=== PATIENT | male | born 1980 | race African-American/Black ===

== ENCOUNTER 2020-02-12 14:45 | Emergency (ER) | payer BC, SELFPAY ==
[2020-02-12] MEDS ORDERED: ONDANSETRON 4 MG/2 ML VIAL ONE (15:33)
[2020-02-12] MEDS ORDERED: NA CHLORIDE 0.9% 1,000 ML ONE (15:33)
[2020-02-12 15:56] LABS: Absolute Lymphocytes (CBC) 1.2 K/uL (0.7-4.9); Basophils % 0.4 % (0-1.3); Hematocrit 44.2 % (39.6-49.0); Lymphocytes % 17.6 % (15.3-44.8); MPV 8.9 fL (7.6-11.3); RBC Red Blood Cell Count 4.75 M/uL (4.33-5.43)
[2020-02-12 16:07] LABS: Albumin 4.1 g/dL (3.4-5.0); Bilirubin Direct 0.1 mg/dL (0-0.2); Bilirubin Total 0.5 mg/dL (0.2-1.0); Potassium 4.1 mmol/L (3.5-5.1); Protein, Total 7.6 g/dL (6.4-8.2)
[2020-02-12 16:34] LABS: Urine Blood NEGATIVE (NEG); Urine Glucose NEGATIVE (NEG); Urine Protein NEGATIVE (NEG); Urine pH 7.5 (5.0-7.0)
--- NOTE | 2020-02-12 17:17 | EDPHYS ---
Physician Documentation [facility] Name: Suraj Ruvalcaba Age: 39 yrs Sex: Male : 1980 Arrival Date: 02/12/2020 Time: 14:48 Bed 7 Private MD: ED Physician Nicolas Sepulveda HPI: 02/11 15:06 This 39 yrs old Black Male presents to ER via Ambulatory with complaints of Headache. jmm 15:06 The patient presents to the emergency department with nausea, vomiting, diarrhea. jmm Onset: The symptoms/episode began/occurred gradually, 3 day(s) ago. Possible causes: unknown. The symptoms are aggravated by nothing. The symptoms are alleviated by nothing. Associated signs and symptoms: Pertinent positives: diarrhea, fever, vomiting, Pertinent negatives: abdominal pain. This is a 39 year old male with no chronic medical conditions that presents to the ED with complaints of 2 days of diarrhea with multiple episodes of vomiting beginning last night. Denies abdominal pain, denies cough, denies sore throat. . Historical: - Allergies: 15:04 No Known Allergies; iw - Home Meds: 15:04 None [Active]; iw - PMHx: 15:04 None; iw - PSHx: 15:04 None; iw - Immunization history:: Adult Immunizations not up to date. - Social history:: Smoking status: Patient denies any tobacco usage or history of. ROS: 15:06 Constitutional: Positive for fever. jmm 15:06 Abdomen/GI: Positive for nausea and vomiting, diarrhea. 15:06 All other systems are negative. Exam: 15:06 Constitutional: This is a well developed, well nourished patient who is awake, alert, jmm and in no acute distress. Head/Face: atraumatic. Eyes: EOMI, no conjunctival erythema appreciated ENT: Moist Mucus Membranes Neck: Trachea midline, Supple Chest/axilla: Normal chest wall appearance and motion. Cardiovascular: Regular rate and rhythm. No edema appreciated Respiratory: Normal respirations, no respiratory distress appreciated 15:06 Back: Normal ROM Skin: General appearance color normal MS/ Extremity: Moves all extremities, no obvious deformities appreciated, no edema noted to the lower extremities Neuro: Awake and alert, normal gait Psych: Behavior is normal, Mood is normal, Patient is cooperative and pleasant 15:06 Abdomen/GI: Inspection: abdomen appears normal, Bowel sounds: normal, Palpation: abdomen is soft and non-tender, in all quadrants. Vital Signs: 15:02 BP 119 / 82; Pulse 62; Resp 16; Temp 98.0; Pulse Ox 100% on R/A; Weight 106.59 kg; iw Height 6 ft. 1 in. (185.42 cm); Pain 0/10; 15:55 BP 153 / 73; Pulse 65; Resp 17; Pulse Ox 100% on R/A; hb 15:02 Body Mass Index 31.00 (106.59 kg, 185.42 cm) iw MDM: 15:06 Patient medically screened. [facility] 17:15 Data reviewed: vital signs, nurses notes. Counseling: I had a detailed discussion with [facility] the patient and/or guardian regarding: the historical points, exam findings, and any diagnostic results supporting the discharge/admit diagnosis, lab results, the need for outpatient follow up, to return to the emergency department if symptoms worsen or persist or if there are any questions or concerns that arise at home. ED course: Abdomen non tender to palpation on reevaluation. Most likely viral gastroenteritis. Patient is able to tolerate PO. Patient is otherwise given strict return precautions. Patient understood and agrees with the plan of care. . 02/11 15:14 Order name: Basic Metabolic Panel; Complete Time: 16:11 [facility] 02/11 15:14 Order name: CBC with Diff; Complete Time: 16:11 [facility] 02/11 15:14 Order name: Hepatic Function; Complete Time: 16:11 [facility] 02/11 15:14 Order name: Lipase; Complete Time: 16:11 [facility] 02/11 15:14 Order name: COVID-19 [facility] 02/11 16:28 Order name: Urine Dipstick--Ancillary (enter results); Complete Time: 16:41 02/11 15:14 Order name: IV Saline Lock; Complete Time: 15:47 [facility] 02/11 15:14 Order name: Labs collected and sent; Complete Time: 15:47 [facility] 02/11 15:14 Order name: Urine Dipstick-Ancillary (obtain specimen); Complete Time: 16:41 [facility] Administered Medications: 15:38 Drug: NS 0.9% 1000 ml Route: IV; Rate: 1 bolus; Site: right antecubital; ec1 15:38 Drug: Zofran (Ondansetron) 4 mg Route: IVP; Site: right antecubital; ec1 Disposition: 18:35 Co-signature as Attending Physician, Nicolas Sepulveda MD. [email or web address] Disposition: 02/12/20 17:16 Discharged to Home. Impression: Vomiting, Diarrhea, unspecified. - Condition is Stable. - Discharge Instructions: Food Choices to Help Relieve Diarrhea, Adult, Nausea and Vomiting, Adult. - Prescriptions for Zofran ODT 4 mg Oral tablet,disintegrating - place 1 tablet by TRANSLINGUAL route every 4-6 hours; 20 tablet. - Medication Reconciliation Form, Thank You Letter, Antibiotic Education, Prescription Opioid Use, Work release form form. - Follow up: Private Physician; When: 2 - 3 days; Reason: Recheck today's complaints, Continuance of care, Re-evaluation by your physician. Signatures: Dispatcher [employer] EDMS Dave Rubio PA PA jmm Williams, Irene, RN RN Pat Pham RN RN Nicolas Sepulveda MD MD ma2 Nuria Jaimes RN RN ec1 Corrections: (The following items were deleted from the chart) 17:28 17:16 02/12/2020 17:16 Discharged to Home. Impression: Vomiting; Diarrhea, unspecified. hb Condition is Stable. Forms are Medication Reconciliation Form, Thank You Letter, Antibiotic Education, Prescription Opioid Use. Follow up: Private Physician; When: 2 - 3 days; Reason: Recheck today's complaints, Continuance of care, Re-evaluation by your physician. douglas
--- NOTE | 2020-02-12 17:17 | ER ---
Nurse's Notes [facility] Name: Suraj Ruvalcaba Age: 39 yrs Sex: Male : 1980 Arrival Date: 02/12/2020 Time: 14:48 Bed 7 Private MD: Diagnosis: Vomiting;Diarrhea, unspecified Presentation: 02/11 15:02 Chief complaint: Patient states: last couple days has been running fever , vomited iw today and last night and is having some diarrhea. Coronavirus screen: congestion, diarrhea, fever, nausea, vomiting. Ebola Screen: Patient negative for fever greater than or equal to 101.5 degrees Fahrenheit, and additional compatible Ebola Virus Disease symptoms Patient denies exposure to infectious person. Patient denies travel to an Ebola-affected area in the 21 days before illness onset. No symptoms or risks identified at this time. Initial Sepsis Screen: Does the patient meet any 2 criteria? No. Patient's initial sepsis screen is negative. Does the patient have a suspected source of infection? No. Patient's initial sepsis screen is negative. Risk Assessment: Do you want to hurt yourself or someone else? Patient reports no desire to harm self or others. Onset of symptoms was February 10, 2020. 15:02 Method Of Arrival: Ambulatory iw 15:02 Acuity: FELIX 3 iw Triage Assessment: 15:53 Headache History: The patient has had previous headaches and this one is similar to ll1 previous episodes. General: Appears ill, Behavior is calm, cooperative, appropriate for age. Pain: Pain currently is 8 out of 10 on a pain scale. Quality of pain is described as aching, Pain began 2-3 days ago. Also complains of nausea. Historical: - Allergies: 15:04 No Known Allergies; iw - Home Meds: 15:04 None [Active]; iw - PMHx: 15:04 None; iw - PSHx: 15:04 None; iw - Immunization history:: Adult Immunizations not up to date. - Social history:: Smoking status: Patient denies any tobacco usage or history of. Screenin:52 Abuse screen: Denies threats or abuse. Nutritional screening: No deficits noted. ll1 Tuberculosis screening: No symptoms or risk factors identified. Fall Risk IV access (20 points). Total Denny Fall Scale indicates No Risk (0-24 pts). Assessment: 15:30 General: Appears uncomfortable, Behavior is calm, cooperative, appropriate for age. ll1 General: + fever. Pain: Complains of pain in head Quality of pain is described as aching. 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 Full function Gait is steady, Speech is normal, Facial symmetry appears normal, Reports headache. Cardiovascular: No deficits noted. Respiratory: No deficits noted. GI: Abdomen is flat, Bowel sounds present X 4 quads. Abd is soft and non tender X 4 quads. Reports diarrhea, nausea, vomiting. Vital Signs: 15:02 BP 119 / 82; Pulse 62; Resp 16; Temp 98.0; Pulse Ox 100% on R/A; Weight 106.59 kg; iw Height 6 ft. 1 in. (185.42 cm); Pain 0/10; 15:55 BP 153 / 73; Pulse 65; Resp 17; Pulse Ox 100% on R/A; hb 15:02 Body Mass Index 31.00 (106.59 kg, 185.42 cm) iw ED Course: 14:48 Patient arrived in ED. mr 15:04 Triage completed. iw 15:04 Arm band placed on. iw 15:06 Nicolas Sepulveda MD is Attending Physician. il2 15:06 Dave Rubio PA is PHCP. [facility] 15:08 Iván Devries, ROBIN is Primary Nurse. ll1 15:38 Inserted saline lock: 20 gauge in right antecubital area, using aseptic technique. ec1 Blood collected. 15:49 Iván Devries, ROBIN is Primary Nurse. ll1 15:52 Patient has correct armband on for positive identification. Bed in low position. Call ll1 light in reach. Side rails up X 1. Pulse ox on. NIBP on. Administered Medications: 15:38 Drug: NS 0.9% 1000 ml Route: IV; Rate: 1 bolus; Site: right antecubital; ec1 15:38 Drug: Zofran (Ondansetron) 4 mg Route: IVP; Site: right antecubital; ec1 Outcome: 17:16 Discharge ordered by . [facility] 17:28 Patient left the ED. hb Addendum: 02/15/2020 12:26 Addendum: COVID-19 Result: Negative result given to RN to notify pt. Notified pt of s s negative COVID 19 swab results. Pt advised that even with a negative test result they should remain in isolation until symptom free for 3 days without medication. Pt also advised to return to the ED for worsening symptoms. Signatures: Dave Rubio PA PA douglas Wei, Angy mr Suzanne Kong RN RN iw Jacque Rodgers RN RN Pat Pham RN RN Nicolas Sepulveda MD MD ma2 Iván Devries RN RN ll1 Nuria Jaimes RN RN ec1 Corrections: (The following items were deleted from the chart) 02/11 15:04 15:02 Pulse 62bpm; Resp 16bpm; Pulse Ox 100% RA; Temp 98.0F; 106.59 kg; Height 6 ft. 1 iw in.; BMI: 31.0; Pain 0/10; iw
[2020-02-12 18:51] VITALS: TEMP 98; O2SAT 100
[2020-02-12 18:52] VITALS: BP 153/73
== END 2020-02-12 17:28 | disposition home or self-care (01) ==
LOC: ER 14:45
DX: R19.7 Diarrhea, unspecified (principal); Z20.828 Contact with and (suspected) exposure to other viral communicable diseases
CPT/HCPCS: 36415; 80048; 80076; 81003; 83690; 85025; 96374; 99284; J2405; J7030; U0002

== ENCOUNTER 2020-10-28 22:37 | Emergency (ER) | payer BC ==
--- NOTE | 2020-10-29 02:30 | EDPHYS ---
Physician Documentation [facility] Name: Suraj Ruvalcaba Age: 39 yrs Sex: Male : 1980 Arrival Date: 10/28/2020 Time: 22:44 Bed Waiting Private MD: ED Physician Lionel Norton HPI: 10/28 23:45 This 39 yrs old Black Male presents to ER via Ambulatory with complaints of COVID cp SYMPTOMS, LOSS OF SMELL. 23:45 The patient presents with sore throat. The patient describes throat pain as scratchy. cp Onset: The symptoms/episode began/occurred 2 day(s) ago. Associated signs and symptoms: Pertinent positives: cough, fever, body aches. 23:45 Patient also c/o loss of smell. cp 23:45 Severity of symptoms: in the emergency department the symptoms are unchanged, despite cp home interventions. Historical: - Allergies: 23:34 No Known Allergies; em - PMHx: 23:34 None; em - PSHx: 23:34 None; em - Immunization history:: Adult Immunizations up to date. - Social history:: Smoking status: Patient denies any tobacco usage or history of. ROS: 23:50 Constitutional: Positive for body aches, Negative for fever, poor PO intake. cp 23:50 Eyes: Negative for injury, pain, redness, and discharge. cp 23:50 ENT: Positive for sore throat, loss of smell, Negative for drainage from ear(s), ear pain, difficulty swallowing, difficulty handling secretions. 23:50 Respiratory: Negative for cough, shortness of breath, wheezing. 23:50 Abdomen/GI: Negative for abdominal pain, nausea, vomiting, and diarrhea. 23:50 Skin: Negative for rash. 23:50 Neuro: Negative for altered mental status, headache, weakness. 23:50 All other systems are negative. Exam: 23:55 Constitutional: The patient appears in no acute distress, alert, awake, non-toxic, well cp developed, well nourished. 23:55 Head/Face: Normocephalic, atraumatic. cp 23:55 Eyes: Periorbital structures: appear normal, Conjunctiva: normal, no exudate, no injection, Sclera: no appreciated abnormality, Lids and lashes: appear normal, bilaterally. 23:55 ENT: External ear(s): are unremarkable, Ear canal(s): are normal, clear, TM's: bulging, is not appreciated, bilaterally, dullness, bilaterally, erythema, is not appreciated, bilaterally, Nose: is normal, Mouth: Lips: moist, Oral mucosa: pink and intact, moist, Posterior pharynx: Airway: no evidence of obstruction, patent, Tonsils: no enlargement, no erythema, no exudate, swelling, is not appreciated, erythema, is not appreciated, exudate, is not appreciated. 23:55 Neck: ROM/movement: is normal, is supple, no meningismus, no nuchal rigidity, Lymph nodes: no appreciated lymphadenopathy. 23:55 Chest/axilla: Inspection: normal, Palpation: is normal, no crepitus, no tenderness. 23:55 Cardiovascular: Rate: normal, Rhythm: regular. 23:55 Respiratory: the patient does not display signs of respiratory distress, Respirations: normal, no use of accessory muscles, no retractions, labored breathing, is not present, Breath sounds: are clear throughout, no decreased breath sounds, no stridor, no wheezing. 23:55 Abdomen/GI: Exam negative for discomfort, distension, guarding, Inspection: abdomen appears normal. Vital Signs: 23:33 BP 132 / 76; Pulse 63; Resp 18; Temp 97.8; Pulse Ox 100% on R/A; Weight 108.86 kg; em Height 6 ft. 1 in. (185.42 cm); 23:33 Body Mass Index 31.66 (108.86 kg, 185.42 cm) em MDM: 10/29 02:29 Patient medically screened. 02:29 Data reviewed: vital signs, nurses notes, lab test result(s), and as a result, I will cp discharge patient. 02:29 Differential diagnosis: group A strep tonsillitis, influenza, peritonsillar abscess cp pharyngitis, retropharyngeal abcess tonsillitis, upper respiratory infection, uvulitis, viral syndrome. Counseling: I had a detailed discussion with the patient and/or guardian regarding: the historical points, exam findings, and any diagnostic results supporting the discharge/admit diagnosis, lab results, to return to the emergency department if symptoms worsen or persist or if there are any questions or concerns that arise at home. 10/28 23:38 Order name: Strep; Complete Time: 01:17 em 10/28 23:38 Order name: Flu; Complete Time: 01:17 em 10/29 00:44 Order name: Throat Culture [facility] 10/29 01:06 Order name: SARS-COV-2 RT PCR; Complete Time: : EDMN Administered Medications: No medications were administered Disposition: 05:08 Co-signature as Attending Physician, Lionel Norton MD. [email or web address] Disposition Summary: 10/29/20 02:29 Discharge Ordered Location: Home cp Problem: new cp Symptoms: are unchanged cp Condition: Stable cp Diagnosis - SARS-associated coronavirus as the cause of diseases classified elsewhere cp Followup: cp - With: Private Physician - When: 5 - 6 days - Reason: Worsening of condition Discharge Instructions: - Discharge Summary Sheet cp - Form - Excuse from Work, School, or Physical Activity cp - COVID-19 cp - Things to Know about the COVID-19 Pandemic - [facility] cp - 10 Things You Can Do to Manage Your COVID-19 Symptoms at Home - [facility] cp - Viral Illness, Adult cp - COVID-19: Quarantine vs. Isolation - [facility] cp - Prevent the Spread of COVID-19 if You Are Sick - [facility] cp Forms: - Medication Reconciliation Form cp - Thank You Letter cp - Antibiotic Education cp - Prescription Opioid Use cp Signatures: Dispatcher [employer] Hernan Lieberman, RN RN Stephan Sorenson PA PA cp Lionel Norton MD MD [email or web address] Corrections: (The following items were deleted from the chart) 10/28 23:53 23:39 CORONAVIRUS+.BRZ ordered. [facility] 10/29 23:42 10/28 23:50 ENT: Positive for sore throat, Negative for drainage from ear(s), ear pain, cp difficulty swallowing, difficulty handling secretions, cp
--- NOTE | 2020-10-29 02:30 | ER ---
Nurse's Notes [facility] Name: Suraj Ruvalcaba Age: 39 yrs Sex: Male : 1980 Arrival Date: 10/28/2020 Time: 22:44 Bed Waiting Private MD: Diagnosis: SARS-associated coronavirus as the cause of diseases classified elsewhere Presentation: 10/28 23:33 Chief complaint: Patient states: loss of smell, body aches, sore throat, also fever em that stated 2 days ago. Coronavirus screen: Client denies travel out of the [place] in the last 14 days. Ebola Screen: Patient negative for fever greater than or equal to 101.5 degrees Fahrenheit, and additional compatible Ebola Virus Disease symptoms Patient denies exposure to infectious person. Patient denies travel to an Ebola-affected area in the 21 days before illness onset. No symptoms or risks identified at this time. Initial Sepsis Screen: Does the patient meet any 2 criteria? No. Patient's initial sepsis screen is negative. Does the patient have a suspected source of infection? No. Patient's initial sepsis screen is negative. Risk Assessment: Do you want to hurt yourself or someone else? Patient reports no desire to harm self or others. Onset of symptoms was October 28, 2020. 23:33 Method Of Arrival: Ambulatory em 23:33 Acuity: FELIX 4 em Historical: - Allergies: 23:34 No Known Allergies; em - PMHx: 23:34 None; em - PSHx: 23:34 None; em - Immunization history:: Adult Immunizations up to date. - Social history:: Smoking status: Patient denies any tobacco usage or history of. Screenin:30 Abuse screen: Denies threats or abuse. Nutritional screening: No deficits noted. em Tuberculosis screening: No symptoms or risk factors identified. Fall Risk None identified. Assessment: 23:30 General: Appears in no apparent distress. comfortable, Behavior is calm, cooperative, em appropriate for age, Reports fever for. Pain: Denies pain. Neuro: Level of Consciousness is awake, alert, obeys commands, Oriented to person, place, time, situation. Cardiovascular: Capillary refill < 3 seconds Patient's skin is warm and dry. Respiratory: Airway is patent Respiratory effort is even, unlabored, Respiratory pattern is regular, symmetrical. Derm: Skin is intact, is healthy with good turgor, Skin is pink, warm \T\ dry. Musculoskeletal: Capillary refill < 3 seconds, Range of motion: intact in all extremities. Vital Signs: 23:33 BP 132 / 76; Pulse 63; Resp 18; Temp 97.8; Pulse Ox 100% on R/A; Weight 108.86 kg; em Height 6 ft. 1 in. (185.42 cm); 23:33 Body Mass Index 31.66 (108.86 kg, 185.42 cm) em ED Course: 22:44 Patient arrived in ED. cf2 23:30 Patient has correct armband on for positive identification. em 23:32 Stephan Brewer PA is PHCP. cp 23:32 Lionel Norton MD is Attending Physician. cp 23:34 Triage completed. em 23:34 Arm band placed on. em 10/29 02:40 No provider procedures requiring assistance completed. Patient did not have IV access em during this emergency room visit. Administered Medications: No medications were administered Outcome: 02:29 Discharge ordered by MD. cp 02:40 Discharged to home ambulatory. em 02:40 Condition: stable 02:40 Discharge instructions given to patient, Instructed on discharge instructions, follow up and referral plans. Demonstrated understanding of instructions, follow-up care. 02:40 Patient left the ED. em Signatures: Hernan Olivares RN RN em Stephan Brewer PA PA cp Frazier, Celesta cf2
[2020-10-29 02:45] VITALS: BP 132/76; TEMP 97.8; O2SAT 100
== END 2020-10-29 02:40 | disposition home or self-care (01) ==
LOC: ER 22:37
DX: U07.1 COVID-19 (principal)
CPT/HCPCS: 87070; 87081; 87804 ×2; 99281; U0003

== ENCOUNTER 2021-05-31 22:59 | Emergency (ER) | payer BC ==
[2021-06-01] MEDS ORDERED: IBUPROFEN 400 MG TAB ONE (00:17)
[2021-06-01] MEDS ORDERED: ACETAMINOPHEN 500 MG TAB ONE (00:18)
--- NOTE | 2021-06-01 02:28 | ER ---
Nurse's Notes [facility] Name: Suraj Ruvalcaba Age: 40 yrs Sex: Male : 1980 Arrival Date: 05/31/2021 Time: 23:09 Bed 11 Private MD: Diagnosis: Injury of Achilles tendon-right Presentation: 06/01 00:09 Chief complaint: Patient states: "I was working out (running) and I was doing some high as6 knees and when I came down on my right leg and heard a pop and felt some pain". Coronavirus screen: At this time, the client does not indicate any symptoms associated with coronavirus-19. Ebola Screen: No symptoms or risks identified at this time. Initial Sepsis Screen: Does the patient meet any 2 criteria? No. Patient's initial sepsis screen is negative. Does the patient have a suspected source of infection? No. Patient's initial sepsis screen is negative. Risk Assessment: Do you want to hurt yourself or someone else? Patient reports no desire to harm self or others. Onset of symptoms was June 01, 2021. 00:09 Method Of Arrival: Ambulatory as6 00:09 Acuity: FELIX 3 as6 Triage Assessment: 00:12 General: Appears uncomfortable, Behavior is calm, cooperative. Pain: Complains of pain as6 in right calf and right Achilles Quality of pain is described as sharp. Musculoskeletal: Reports pain in right calf and right Achilles. Historical: - Allergies: 00:11 No Known Allergies; as6 - Home Meds: 00:11 None [Active]; as6 - PMHx: 00:11 None; as6 - PSHx: 00:11 None; as6 - Immunization history:: Client reports receiving the 2nd dose of the Covid vaccine, moderna . - Social history:: Smoking status: Patient reports the use of cigarette tobacco products, denies chronic smoking, but will smoke occasionally. Screenin:34 Abuse screen: Denies threats or abuse. Denies injuries from another. Nutritional as6 screening: No deficits noted. Tuberculosis screening: No symptoms or risk factors identified. Fall Risk None identified. Assessment: 01:48 General: Appears in no apparent distress. uncomfortable, Behavior is calm, cooperative, bb Reports pain and swelling to right lower extremity. Pain: Complains of pain in right leg. Neuro: Level of Consciousness is awake, alert, obeys commands, Oriented to person, place, time, situation. Cardiovascular: Capillary refill < 3 seconds Patient's skin is warm and dry. Respiratory: Respiratory effort is even, unlabored, Respiratory pattern is regular. GI: No signs and/or symptoms were reported involving the gastrointestinal system. Derm: Skin is dry, Skin is normal, Skin temperature is warm. Musculoskeletal: Swelling present in right leg. 03:03 Reassessment: Patient is alert, oriented x 3, equal unlabored respirations, skin bb warm/dry/pink. splint to RLE in place, checked by Stephan RICE pt verbalized understanding of and agrees to plan of care discharge instructions given pt assisted to exit via wheelchair by solar lab technician accompanied by spouse. Vital Signs: 00:09 BP 126 / 85; Pulse 83; Resp 18 S; Temp 98.6(TE); Pulse Ox 99% on R/A; Weight 108.86 kg as6 (R); Height 6 ft. (182.88 cm) (R); Pain 10/10; 01:48 BP 127 / 77; Pulse 72; Resp 16 S; Pulse Ox 96% on R/A; bb 00:09 Body Mass Index 32.55 (108.86 kg, 182.88 cm) as6 ED Course: 16 23:09 Patient arrived in ED. wm 06/01 00:11 Triage completed. as6 00:12 Stephan Brewer PA is PHCP. cp 00:12 Johan Kiran MD is Attending Physician. cp 00:13 Arm band placed on. as6 01:34 Bed in low position. Call light in reach. Side rails up X 1. Adult w/ patient. Pulse ox as6 on. NIBP on. 01:48 Marlyn Mcelroy, ROBIN is Primary Nurse. bb 01:48 No provider procedures requiring assistance completed. Patient did not have IV access bb during this emergency room visit. 01:51 XRAY Ankle RIGHT 3 view In Process Unspecified. EDMS 02:26 Sammy Agosto MD is Referral Physician. cp 02:47 Crutch training done. Orthoglass splint: Posterior short lleg splint applied on right oe leg. Administered Medications: 00:16 Drug: Ibuprofen 800 mg Route: PO; as6 02:02 Follow up: Response: No adverse reaction bb 00:16 Drug: Tylenol 1000 mg Route: PO; as6 02:03 Follow up: Response: No adverse reaction bb 02:54 Drug: HYDROcodone-acetaminophen 10 mg-325 mg 1 tabs Route: PO; as6 03:04 Follow up: Response: Medication administered at discharge.; RASS: Alert and Calm (0) bb Outcome: 02:27 Discharge ordered by . cp 03:04 Discharged to home via wheelchair, with crutches, with family. bb 03:04 Condition: stable 03:04 Discharge instructions given to patient, Instructed on discharge instructions, follow up and referral plans. no driving heavy equipment, medication usage, Demonstrated understanding of instructions, follow-up care, medications, Prescriptions given X 2. 03:05 Patient left the ED. bb Signatures: Dispatcher [employer] EDMarlyn Dickson, RN RN bb Stephan Brewer, DWAYNE PA Ravindra Mckinnon Wendy wm Slawson, Ashby, RN RN as6
--- NOTE | 2021-06-01 02:28 | EDPHYS ---
Physician Documentation [facility] Name: Suraj Ruvalcaba Age: 40 yrs Sex: Male : 1980 Arrival Date: 05/31/2021 Time: 23:09 Bed 11 Private MD: ED Physician Johan Kiran HPI: 06/01 00:30 This 40 yrs old Black Male presents to ER via Ambulatory with complaints of Leg Injury. cp 00:30 The patient presents with an injury, pain, that is acute, tenderness. The complaints cp affect the right calf and right Achilles. 00:30 Context: the patient is able to ambulate, with moderate difficulty, Problem is a result cp from a previous injury: No. occurred while working out and performing "high knee" exercise. Onset: The symptoms/episode began/occurred just prior to arrival. Associated signs and symptoms: Pertinent positives: calf tenderness, weakness, Pertinent negatives numbness. Treatment prior to arrival includes: no previous treatment. Historical: - Allergies: 00:11 No Known Allergies; as6 - Home Meds: 00:11 None [Active]; as6 - PMHx: 00:11 None; as6 - PSHx: 00:11 None; as6 - Immunization history:: Client reports receiving the 2nd dose of the Covid vaccine, moderna . - Social history:: Smoking status: Patient reports the use of cigarette tobacco products, denies chronic smoking, but will smoke occasionally. ROS: 00:35 MS/extremity: Positive for pain, swelling, tenderness, of the right Achilles and right cp calf, Negative for paresthesias. 00:35 Eyes: Negative for injury, pain, redness, and discharge. cp 00:35 Constitutional: Negative for body aches, chills, fever, poor PO intake. 00:35 Respiratory: Negative for cough, shortness of breath, wheezing. 00:35 Abdomen/GI: Negative for abdominal pain, nausea, vomiting, and diarrhea. 00:35 Neuro: Negative for altered mental status, headache, weakness. Exam: 00:40 Constitutional: The patient appears in no acute distress, alert, awake, well developed, cp well nourished. 00:40 Head/Face: Normocephalic, atraumatic. cp 00:40 Cardiovascular: Rate: normal. 00:40 Respiratory: the patient does not display signs of respiratory distress, Respirations: normal, no use of accessory muscles, no retractions. 00:40 Back: pain, is absent, ROM is normal. 00:40 Musculoskeletal/extremity: Extremities: grossly normal except: noted in the right Achilles: pain, swelling, tenderness, palpable defect, marked pain with plantar flexion, ROM: limited active range of motion due to pain, in the right Achilles and right ankle, Pulses: noted to be 2+ in the right dorsalis pedis artery, the right ankle Sensation intact. Tendon exam: Vital Signs: 00:09 BP 126 / 85; Pulse 83; Resp 18 S; Temp 98.6(TE); Pulse Ox 99% on R/A; Weight 108.86 kg as6 (R); Height 6 ft. (182.88 cm) (R); Pain 10/10; 01:48 BP 127 / 77; Pulse 72; Resp 16 S; Pulse Ox 96% on R/A; bb 00:09 Body Mass Index 32.55 (108.86 kg, 182.88 cm) as6 Procedures: 02:50 Splinting: Splint applied to right lower leg using Orthoglass splint, posterior short cp leg. applied by tech. Examined by me, post splint application: neurovascular intact, Patient tolerated well. MDM: 01:40 Patient medically screened. cp 02:00 Differential diagnosis: dislocation, closed fracture, tendonitis, Achilles tendon cp rupture. 02:27 Data reviewed: vital signs, nurses notes, radiologic studies, plain films. cp 02:27 Test interpretation: by ED physician or midlevel provider: plain radiologic studies. cp Counseling: I had a detailed discussion with the patient and/or guardian regarding: the historical points, exam findings, and any diagnostic results supporting the discharge/admit diagnosis, radiology results, the need for outpatient follow up, for definitive care, a orthopedic surgeon, to return to the emergency department if symptoms worsen or persist or if there are any questions or concerns that arise at home. Response to treatment: the patient's symptoms have markedly improved after treatment, and as a result, I will discharge patient. 02:30 ED course: VSS. Discussed results of xrays and exam that showed concern for Achilles cp tendon tear and need for ortho f/u. Right lower leg immobilized, recommend non-weight bearing. 06/01 00:12 Order name: XRAY Ankle RIGHT 3 view cp 06/01 02:00 Order name: Splint Leg: Short Leg: posterior; Complete Time: 02:49 cp 06/01 02:00 Order name: Crutches; Complete Time: 02:49 cp Administered Medications: 00:16 Drug: Ibuprofen 800 mg Route: PO; as6 02:02 Follow up: Response: No adverse reaction bb 00:16 Drug: Tylenol 1000 mg Route: PO; as6 02:03 Follow up: Response: No adverse reaction bb 02:54 Drug: HYDROcodone-acetaminophen 10 mg-325 mg 1 tabs Route: PO; as6 03:04 Follow up: Response: Medication administered at discharge.; RASS: Alert and Calm (0) bb Disposition: 03:34 Co-signature as Attending Physician, Johan Kiran MD I agree with the assessment and kdr plan of care. Disposition Summary: 06/01/21 02:27 Discharge Ordered Location: Home cp Problem: new cp Symptoms: have improved cp Condition: Stable cp Diagnosis - Injury of Achilles tendon - right cp Followup: cp - With: Sammy Agosto MD - When: 1 - 2 days - Reason: Recheck today's complaints Discharge Instructions: - Discharge Summary Sheet cp - Achilles Tendon Tear cp Forms: - Medication Reconciliation Form cp - Work release form bb - Thank You Letter cp - Antibiotic Education cp - Prescription Opioid Use cp Prescriptions: - Ibuprofen 800 mg Oral Tablet - take 1 tablet by ORAL route every 8 hours As needed take with food; 30 tablet; cp Refills: 0, Product Selection Permitted - Ultracet 37.5-325 mg Oral Tablet - take 1 tablet by ORAL route every 6 hours - for up to 5 days; do not exceed 8 cp tablets per day.; 20 tablet; Refills: 0, Product Selection Permitted Signatures: Dispatcher [employer] Johan Trinidad MD MD kdr Stephan Brewer PA PA cp Abad Jade RN RN as6 Marlyn Mcelroy RN bb
[2021-06-01] MEDS ORDERED: HYDROCODONE/APAP 10/325 TAB ONE (02:57)
[2021-06-01 03:23] VITALS: TEMP 98.6
[2021-06-01 03:25] VITALS: BP 127/77; O2SAT 96
--- NOTE | 2021-06-01 12:13 | RAD REPORT ---
EXAM DESCRIPTION: RAD - Ankle Right 3 View - 06/01/2021 1:51 am CLINICAL HISTORY: 40 years, Male, PAIN COMPARISON: None. FINDINGS: 3 X-ray views of the right ankle (frontal, lateral and oblique views) were performed. There is no evidence for fracture or dislocation. Tiny heterotopic calcification is noted within the anterior superior portion of the talus perhaps suggesting a accessory bone/or previous ligamentous in jury. Minimal degenerative changes are seen within the midfoot articulation. The ankle mortise is int act. There is no significant joint effusion. There are no gross intraosseous lesions. No gross soft tissue abnormality is demonstrated. IMPRESSION: No acute bony abnormality. Electronically signed by: Maxwell Solorio MD 06/01/2021 2:07 AM CDT Due to temporary technical issues with the PACS/Fluency reporting system, reports are being signed by the in house radiologists without review as a courtesy to insure prompt reporting. The interpreting radiologist is fully responsible for the content of the report.
== END 2021-06-01 03:05 | disposition home or self-care (01) ==
LOC: ER 22:59
DX: S86.001A Unspecified injury of right Achilles tendon, initial encounter (principal); Z72.0 Tobacco use
CPT/HCPCS: 99284